=== PATIENT | female | born 1970 | race American Indian/Alaskan Native ===

== ENCOUNTER 2020-01-19 14:19 | Emergency (ER) | payer SELFPAY ==
--- NOTE | 2020-01-19 15:27 | Event Note ---
ED Screening Note Date of service: 01/19/20 Time: 15:22 ED Screening Note: This is a 49 y.o. F. that presents to the ER with nausea and dizziness for 2 days. Patient reports symptoms are similar to motion sickness when she move. Reports nausea and abdominal cramping with movement. States headache last week with worsening symptoms such as room spinning Wednesday. Denies vomiting, fever, chills, chest pain. PMH of DM2 LMP 01/11/20 This initial assessment/diagnostic orders/clinical plan/treatment(s) is/are subject to change based on patients health status, clinical progression and re- assessment by fellow clinical providers in the ED. Further treatment and workup at subsequent clinical providers discretion. Patient/guardian urged not to elope from the ED as their condition may be serious if not clinically assessed and managed. Initial orders include: Accucheck 109
[2020-01-19 16:34] LABS: Basophils % (Auto) 0.5 % (0.0-1.8); Eosinophils # (Auto) 0.1 K/mm3 (0.0-0.4); Eosinophils % (Auto) 1.5 % (0.0-4.3); Hematocrit 42.4 % (30.3-42.9); Hemoglobin 13.7 gm/dl (10.1-14.3); Lymphocytes # (Auto) 3.2 K/mm3 (1.2-5.4); Lymphocytes % (Auto) 36.7 % (13.4-35.0); Mean Corpuscular HGB Conc 32 % (30-34); Mean Corpuscular Volume 88 fl (79-97); Monocytes # (Auto) 0.6 K/mm3 (0.0-0.8); Monocytes % (Auto) 6.7 % (0.0-7.3); Platelet Count 311 K/mm3 (140-440); Red Blood Count 4.83 M/mm3 (3.65-5.03); Red Cell Distribution Width 14.6 % (13.2-15.2)
[2020-01-19] MEDS ORDERED: PROCHLORPERAZINE MALEATE 10 MG TAB PO ONE (17:00)
[2020-01-19 17:03] LABS: Alanine Aminotransferase 15 units/L (7-56); Albumin 4.4 g/dL (3.9-5); BUN/Creatinine Ratio 13; Blood Urea Nitrogen 10 mg/dL (7-17); Calcium 9.5 mg/dL (8.4-10.2); Hemolysis Index 10
[2020-01-19 17:13] LABS: Bacteria,Urine 1+ /HPF (Negative); Bilirubin,Urine NEG (Negative); Blood,Urine NEG (Negative); Color,Urine Yellow (Yellow); Mucus,Urine 1+ /HPF; Protein,Urine <15 mg/dL mg/dL (Negative); Urobilinogen,Urine < 2.0 mg/dL (<2.0)
[2020-01-19] MEDS ORDERED: MECLIZINE 25 MG TAB PO ONE (17:34)
--- NOTE | 2020-01-19 18:27 | Emergency Department Report ---
ED General Adult HPI - General Chief complaint: Dizziness Stated complaint: N/V DIZZY Time Seen by Provider: 01/19/20 15:22 Source: patient Mode of arrival: Ambulatory Limitations: No Limitations - History of Present Illness Initial comments: This is a 50-year-old female who presents the ED planing of some dizziness and nausea that began Wednesday. Patient states prior to that she felt some popping in the ears. Patient states that dizziness is worsened with sitting up abruptly on lying down suddenly. Patient states that nausea is only very mild and short lasting and only comes about when she has an episode of the dizziness. Patient denies any recent travel, swimming, tinnitus, fever, chills, vomiting, abdominal pain - Related Data Previous Rx's Medication Instructions Recorded Last Taken Type Meclizine [Antivert] 25 mg PO TID PRN #30 tablet 01/19/20 Unknown Rx Allergies Allergy/AdvReac Type Severity Reaction Status Date / Time No Known Allergies Allergy Unverified 01/19/20 15:26 ED Review of Systems ROS: Stated complaint: N/V DIZZY Other details as noted in HPI Comment: All other systems reviewed and negative ED Past Medical Hx - Past Medical History Previous Medical History?: No Hx Diabetes: Yes (No longer on medications) - Surgical History Past Surgical History?: No - Social History Smoking Status: Never Smoker Substance Use Type: None - Medications Home Medications: Home Medications Medication Instructions Recorded Confirmed Last Taken Type Meclizine [Antivert] 25 mg PO TID PRN #30 tablet 01/19/20 Unknown Rx ED Physical Exam - General Limitations: No Limitations General appearance: alert, in no apparent distress - Head Head exam: Present: atraumatic, normocephalic - Eye Eye exam: Present: normal appearance, PERRL. Absent: conjunctival injection, nystagmus Pupils: Present: normal accommodation - ENT ENT exam: Present: mucous membranes moist - Neck Neck exam: Present: normal inspection - Respiratory Respiratory exam: Present: normal lung sounds bilaterally. Absent: respiratory distress - Cardiovascular Cardiovascular Exam: Present: regular rate, normal rhythm. Absent: systolic murmur, diastolic murmur, rubs, gallop - GI/Abdominal GI/Abdominal exam: Present: soft, normal bowel sounds - Extremities Exam Extremities exam: Present: normal inspection - Back Exam Back exam: Present: normal inspection - Neurological Exam Neurological exam: Present: alert, oriented X3 - Psychiatric Psychiatric exam: Present: normal affect, normal mood - Skin Skin exam: Present: warm, dry, intact, normal color. Absent: rash ED Course Vital Signs 01/19/20 15:23 Temperature 98.8 F Pulse Rate 92 H Respiratory 16 Rate Blood Pressure 190/97 O2 Sat by Pulse 98 Oximetry ED Medical Decision Making - Lab Data Result diagrams: 01/19/20 16:18 01/19/20 16:18 Laboratory Last Values WBC 8.6 K/mm3 (4.5-11.0) 01/19/20 16:18 RBC 4.83 M/mm3 (3.65-5.03) 01/19/20 16:18 Hgb 13.7 gm/dl (10.1-14.3) 01/19/20 16:18 Hct 42.4 % (30.3-42.9) 01/19/20 16:18 MCV 88 fl (79-97) 01/19/20 16:18 MCH 28 pg (28-32) 01/19/20 16:18 MCHC 32 % (30-34) 01/19/20 16:18 RDW 14.6 % (13.2-15.2) 01/19/20 16:18 Plt Count 311 K/mm3 (140-440) 01/19/20 16:18 Lymph % (Auto) 36.7 % (13.4-35.0) H 01/19/20 16:18 [place] % (Auto) 6.7 % (0.0-7.3) 01/19/20 16:18 Eos % (Auto) 1.5 % (0.0-4.3) 01/19/20 16:18 Baso % (Auto) 0.5 % (0.0-1.8) 01/19/20 16:18 Lymph # 3.2 K/mm3 (1.2-5.4) 01/19/20 16:18 [place] # 0.6 K/mm3 (0.0-0.8) 01/19/20 16:18 Eos # 0.1 K/mm3 (0.0-0.4) 01/19/20 16:18 Baso # 0.0 K/mm3 (0.0-0.1) 01/19/20 16:18 Seg Neutrophils % 54.6 % (40.0-70.0) 01/19/20 16:18 Seg Neutrophils # 4.7 K/mm3 (1.8-7.7) 01/19/20 16:18 Sodium 139 mmol/L (137-145) 01/19/20 16:18 Potassium 4.3 mmol/L (3.6-5.0) 01/19/20 16:18 Chloride 100.0 mmol/L (98-107) 01/19/20 16:18 Carbon Dioxide 25 mmol/L (22-30) 01/19/20 16:18 Anion Gap 18 mmol/L 01/19/20 16:18 BUN 10 mg/dL (7-17) 01/19/20 16:18 Creatinine 0.8 mg/dL (0.7-1.2) 01/19/20 16:18 Estimated GFR > 60 ml/min 01/19/20 16:18 BUN/Creatinine Ratio 13 % 01/19/20 16:18 Glucose 108 mg/dL (65-100) H 01/19/20 16:18 POC Glucose 109 (70-105) H 01/19/20 15:41 Calcium 9.5 mg/dL (8.4-10.2) 01/19/20 16:18 Total Bilirubin 0.20 mg/dL (0.1-1.2) 01/19/20 16:18 AST 19 units/L (5-40) 01/19/20 16:18 ALT 15 units/L (7-56) 01/19/20 16:18 Alkaline Phosphatase 54 units/L (35-129) 01/19/20 16:18 Total Protein 8.0 g/dL (6.3-8.2) 01/19/20 16:18 Albumin 4.4 g/dL (3.9-5) 01/19/20 16:18 Albumin/Globulin Ratio 1.2 % 01/19/20 16:18 Urine Color Yellow (Yellow) 01/19/20 Unknown Urine Turbidity Clear (Clear) 01/19/20 Unknown Urine pH 6.0 (5.0-7.0) 01/19/20 Unknown Ur Specific [place] 1.019 (1.003-1.030) 01/19/20 Unknown Urine Protein <15 mg/dl mg/dL (Negative) 01/19/20 Unknown Urine Glucose (UA) Neg mg/dL (Negative) 01/19/20 Unknown Urine Ketones Neg mg/dL (Negative) 01/19/20 Unknown Urine Blood Neg (Negative) 01/19/20 Unknown Urine Nitrite Neg (Negative) 01/19/20 Unknown Urine Bilirubin Neg (Negative) 01/19/20 Unknown Urine Urobilinogen < 2.0 mg/dL (<2.0) 01/19/20 Unknown Ur Leukocyte Esterase Neg (Negative) 01/19/20 Unknown Urine WBC (Auto) 4.0 /HPF (0.0-6.0) 01/19/20 Unknown Urine RBC (Auto) 3.0 /HPF (0.0-6.0) 01/19/20 Unknown U Epithel Cells (Auto) 4.0 /HPF (0-13.0) 01/19/20 Unknown Urine Bacteria (Auto) 1+ /HPF (Negative) 01/19/20 Unknown Urine Mucus 1+ /HPF 01/19/20 Unknown - Medical Decision Making This 49-year-old female presented with vertigo. All labs completed and were normal. I discussed findings with the patient. Patient received meclizine in the ED. I discussed with the patient to follow-up with ENT specialist. Referrals given. Vital signs are normal patient is in no acute distress. Critical care attestation.: If time is entered above; I have spent that time in minutes in the direct care of this critically ill patient, excluding procedure time. ED Disposition Clinical Impression: Vertigo, Dizziness, nonspecific, Benign positional vertigo Disposition: - TO HOME OR SELFCARE Is pt being admited?: No Does the pt Need Aspirin: No Condition: Stable Instructions: Benign Paroxysmal Positional Vertigo (ED), Vertigo (ED) Additional Instructions: Make sure to follow up with the primary care physician as discussed. Take all your medications as you've been prescribed. If you have any worsening symptoms or develop new symptoms please return to ED immediately. Prescriptions: Meclizine [Antivert] 25 mg PO TID PRN #30 tablet PRN Reason: Vertigo Referrals: PRIMARY CARE, [Primary Care Provider] - 3-5 Days MANOHAR CLEMENT MD [Staff Physician] - 3-5 Days ENT [facility] [Provider Group] - 3-5 Days Forms: Accompanied Note, Work/School Release Form(ED) Time of Disposition: 18:37
[2020-01-19 19:17] VITALS: BP 167/90
== END 2020-01-19 19:17 | disposition home or self-care (01) ==
LOC: ED 14:19
DX: H81.10 Benign paroxysmal vertigo, unspecified ear (principal); E11.9 Type 2 diabetes mellitus without complications
CPT/HCPCS: 36415; 80053; 81001; 82962; 85025; 99283; Q0164